=== PATIENT | male | born 1975 ===

== ENCOUNTER 2024-01-24 13:17 | Emergency (ER) | payer BC ==
[2024-01-24 13:51] VITALS: BP 149/85; PULSE 103
== END 2024-01-24 14:05 | disposition home or self-care (01) ==
LOC: MW.ED 13:17
DX: S56.911A Strain of unspecified muscles, fascia and tendons at forearm level, right arm, initial encounter (principal); X50.1XXA Overexertion from prolonged static or awkward postures, initial encounter
CPT/HCPCS: 99283